=== PATIENT | male | born 1990 | race Native Hawaiian/Other Pacific Islander ===

== ENCOUNTER 2024-07-17 20:22 | Emergency (ER) | payer OTHER, SELFPAY ==
--- NOTE | ~2024-07-17 | XR_ITS ---
EXAMINATION: XR CHEST CLINICAL INFORMATION: cough COMPARISON: None available. TECHNIQUE: 2 views of the chest were obtained. FINDINGS: No focal consolidation, pulmonary edema, or pleural effusion. Normal cardiomediastinal silhouette. XR/XR chest 2V IMPRESSION: No acute cardiopulmonary findings. Electronically signed by: Tank Kulkarni MD 07/17/2024 08:59 PM [facility]
[2024-07-17 20:25] VITALS: BP 121/73; PULSE 79; RESP 18; TEMP 36.8; O2SAT 98; BMI 32.9
--- NOTE | 2024-07-17 20:25 | ED_ITS ---
HPI - General Adult General Chief complaint: General Medical Stated complaint: sick x2 weeks ; dizziness, nausea, vomitting Time Seen by Provider: 07/17/24 21:07 Source: patient and old records reviewed Mode of arrival: ambulatory Limitations: no limitations History of Present Illness ED Provider: HANSEL PELAYO narrative: 33 yo male with PMH of COVID and pneumonia here with c/o URI symptoms cough cold congestion not feeling well for 2 weeks no travel or sick contacts spouse with same illness. He is worried he has pneumonia as he has had it in the past MD complaint: URI Onset (ago): week(s) (2) Location: head and chest Radiation: non-radiation Severity: moderate Pain Consistency: intermittent Relieving factors: none Exacerbating factors: other (coughing) Associated symptoms: cough, headaches, loss of appetite and shortness of breath Treatments prior to arrival: none Related Data Previous Rx's ?Medication ?Instructions ?Recorded albuterol sulfate 90 mcg/actuation 2 puff inhalation QID PRN 07/17/24 aerosol inhaler shortness of breath or wheezing #6.7 grams azithromycin 250 mg tablet 250 mg PO DAILY 4 days #4 tabs 07/17/24 Allergies Allergy/AdvReac Type Severity Reaction Status Date / Time No Known Allergies Allergy Verified 07/17/24 20:29 Review of Systems Review of Systems: Constitutional : No Fever, No Chills, pos Fatigue ENT/Mouth : pos sore throat, pos Rhinorrhea Eyes: No Eye Pain, No Swelling, No Redness Cardiovascular : No Chest Pain, No SOB, No Dyspnea on Exertion Respiratory : pos Cough, pos Sputum Gastrointestinal : No Nausea, No Vomiting, No Diarrhea, No abdominal Pain Genitourinary : No Dysuria, No Urinary Frequency, No Hematuria, Musculoskeletal : No joint pain, No Myalgias, No Joint Swelling Skin : No Skin Lesions, No rash Neuro : No Weakness, No Numbness, No Dizziness, positive Headache Psych : No Anxiety/Panic, No Depression All other systems reviewed and are negative [facility] Past Medical History Medical History (Updated 07/17/24 @ 21:49 by Bernice Nolen DO) Pneumonia Social History Social History (Updated 07/17/24 @ 21:12 by Bernice Nolen DO) Patient Tobacco Use Status: Never used Tobacco Advance Directives: No Advance Directives Information Provided: No Physical Exam ED Vital Signs: Vital Signs - 24 hr 07/17/24 20:25 Temperature 98.2 F Pulse Rate 79 Respiratory Rate 18 Blood Pressure 121/73 Pulse Oximetry 98 Oxygen Delivery Method Room Air BMI result Body Mass Index 32.9 Appearance: Alert. Oriented X3. No acute distress. Eyes: Pupils equal, round and reactive to light. ENT: Pharynx normal. Neck: Normal inspection. Neck supple. CVS: Normal heart rate and rhythm. Pulses normal. Respiratory: No respiratory distress. Breath sounds mild rhonchi noted no wheezing Abdomen: Soft and nontender. Skin: Skin warm and dry. Normal skin color. Normal skin turgor. Extremities: No lower extremity edema. No calf ttp Neuro: Oriented X 3. No motor deficit. No sensory deficit. Course Course Course Narrative: RME, this is a rapid medical exam performed by Jamel Arellano please refer to primary provider for complete H&P- 33 year old male presents for a 2 week history of cough, congestion, headache and subjective fevers. Plan for viral swabs, chest x-ray Medications Administered Discontinued Medications Generic Name Dose Route Start Last Admin Trade Name Freq PRN Reason Stop Dose Admin Albuterol Sulfate 2 puff 07/17/24 21:23 07/17/24 21:32 Albuterol Sulfate 90 Mcg 8 Gm Inhaler INHALE 07/17/24 21:24 2 puff ONCE ONE Administration Dexamethasone Sodium Phosphate 10 mg 07/17/24 21:23 07/17/24 21:32 Dexamethasone Sod Phosphate 10 Mg/Ml Vial PO 07/17/24 21:24 10 mg ONCE ONE Administration Medical Decision Making Medical Decision Making [facility] Narrative: 33 yo male with PMH of reported reactive airway dis and pneumonia in past here with illness x 2 weeks that is URI at this time both he and spouse are here with same complaint - he is not toxic appearing, neuro intact, pharynx normal - suspect bronchitis or pneumonia - start on dexa and albuterol INH. No resp distress Differential Diagnosis Differential Diagnoses: The differential diagnosis associated with the presentation includes bronchitis, pneumonia, URI Admission/Observation Consideration of admission/observation: Escalation of care including admission/observation considered VS stable , tolerating PO stable for DC Lab Data [facility] Lab Attestation statement: I reviewed the patient's lab results. Labs: Lab Results 07/17/24 Range/Units 20:35 Influenza Type A (PCR) NEGATIVE (Negative) Influenza Type B (PCR) NEGATIVE (Negative) RSV RNA Qual (PCR) NEGATIVE (Negative) SARS-CoV-2 RNA (RT-PCR) NEGATIVE (Negative) Independent Interpretation I performed an independent interpretation of an: Plain X-Ray (normal ) Radiology Impression Discussion of test interpretation with radiology: I have reviewed the radiologist's reading. Independent Historian Clinical information obtained from an independent historian. History obtained from or confirmed by: Spouse Prescription Management I considered prescription management with: Antibiotic and Other Discharge Plan Discharge Clinical Impression: Bronchitis Patient Disposition: Home, Self-Care Instructions: Acute Bronchitis (ED) Additional Instructions: return for difficulty breathing, worsening symptoms or any other concerns On azithromycin, call your provider if you develop new ringing in your ears, new problems hearing, dizziness, palpitations, abdominal pain, nausea, or diarrhea. Prescriptions: New azithromycin 250 mg tablet 250 mg PO DAILY 4 Days Qty: 4 0RF Rx Instructions: start on day 2 of therapy albuterol sulfate 90 mcg/actuation HFA aerosol inhaler 2 puff inhalation QID PRN (Reason: shortness of breath or wheezing) Qty: 6.7 0RF Stand Alone Forms: Work/School Release Print Language: Cuban
[2024-07-17 21:26] LABS: Influenza A PCR NEGATIVE (Negative); Influenza B PCR NEGATIVE (Negative); Resp Syncy Virus RNA Qual PCR NEGATIVE (Negative); SARS COV2 PCR INHOUSE NEGATIVE (Negative)
[2024-07-17] MEDS: dexAMETHasone sod phosphate 10 MG/ML VIAL PO (21:32)
[2024-07-17] MEDS: Albuterol Sulfate 90 MCG 8 GM INHALER 2 PUFF INHALE (21:32)
[2024-07-17 22:03] VITALS: BP 120/65; PULSE 78; RESP 16; TEMP 37.3; O2SAT 100
[2024-07-17 22:08] VITALS: BP 120/65; PULSE 78; RESP 16; TEMP 37.3; O2SAT 100
== END 2024-07-17 22:08 | disposition home or self-care (01) ==
PROVIDERS: Physician Assistant; Emergency Provider Emergency Medicine
DX: J40 Bronchitis, not specified as acute or chronic (principal); Z03.818 Encounter for observation for suspected exposure to other biological agents ruled out; R05.9 Cough, unspecified
CPT/HCPCS: 0241U; 71046; 99283; 99284; J1100

== ENCOUNTER 2024-08-01 01:29 | Emergency (ER) | payer OTHER, SELFPAY ==
--- NOTE | 2024-08-01 | ECG_ITS ---
Test Reason : chest pain Blood Pressure : / mmHG Vent. Rate : 080 BPM Atrial Rate : 080 BPM P-R Int : 178 ms QRS Dur : 090 ms QT Int : 364 ms P-R-T Axes : 031 003 008 degrees QTc Int : 419 ms Normal sinus rhythm Minimal voltage criteria for LVH, may be normal variant ( R in aVL ) Borderline ECG No previous ECGs available Referred By: Generic ED Physician Electronically Signed By:Leonidas Carr
--- NOTE | ~2024-08-01 | XR_ITS ---
EXAMINATION: XR CHEST CLINICAL INFORMATION: cough, chest tightness COMPARISON: July 17, 2024 TECHNIQUE: 2 views of the chest were obtained. FINDINGS: No significant abnormality is noted involving the heart, lungs, mediastinum, bony thorax or soft tissues. XR/XR chest 2V IMPRESSION: Unremarkable examination. Electronically signed by: Ricardo Lowe MD 08/01/2024 04:07 AM [facility]
[2024-08-01 01:40] VITALS: BP 125/70; PULSE 84; RESP 20; TEMP 37.1; O2SAT 96; BMI 32.5
--- NOTE | 2024-08-01 02:16 | ED.URI ---
HPI - URI/Sore Throat General Chief Complaint: Upper Respiratory Symptoms Stated Complaint: coughing, chest pain Time Seen by Provider: 08/01/24 02:15 Source: patient Mode of arrival: ambulatory Limitations: no limitations History of Present Illness ED Provider: HPI Narrative: Patient has been congested and coughing for last few days with chest tightness roommate also sick with the same symptoms symptoms started about a month ago since he moved to a new apartment patient does have history of asthma smokes cigarette Related Data Previous Rx's ?Medication ?Instructions ?Recorded albuterol sulfate 90 mcg/actuation 2 puff inhalation QID PRN 07/17/24 aerosol inhaler shortness of breath or wheezing #6.7 grams azithromycin 250 mg tablet 250 mg PO DAILY 4 days #4 tabs 07/17/24 cefuroxime axetil 500 mg tablet 500 mg PO BID 7 days #14 tabs 08/01/24 prednisone 20 mg tablet 40 mg (2 x 20 mg) PO DAILY #10 tabs 08/01/24 Allergies Allergy/AdvReac Type Severity Reaction Status Date / Time No Known Allergies Allergy Verified 08/01/24 01:40 Review of Systems Review of Systems: Yes all other systems are reviewed and are negative PMFSH Past Medical History Medical History Pneumonia Social History Social History Patient Tobacco Use Status: Never used Tobacco Advance Directives: No Advance Directives Information Provided: Yes Do you have a plan to hurt others: No Plan Physical Exam Vital Signs: Vital Signs: Last Vital Signs Temp 98.7 F 08/01/24 01:40 Pulse 84 08/01/24 01:40 Resp 20 08/01/24 01:40 BP 125/70 08/01/24 01:40 Pulse Ox 96 08/01/24 01:40 O2 Del Method Room Air 08/01/24 01:40 BMI result Body Mass Index 32.5 Appearance: Alert. Oriented X3. No acute distress. ENT: Pharynx normal. Oral Mucosa moist Neck: Normal inspection. Neck supple. CVS: Normal heart rate and rhythm. Pulses normal. Respiratory: No respiratory distress. Equal air entry bilateral, no wheezing/rales/rhonchi prolonged expiration Skin: Skin warm and dry. Normal skin color. Normal skin turgor. Extremities: No lower extremity edema. Neuro: Oriented X 3. Medical Decision Making Lab Data MDM Lab Attestation statement: I reviewed the patient's lab results. Labs: Lab Results 08/01/24 Range/Units 01:55 Influenza Type A (PCR) NEGATIVE (Negative) Influenza Type B (PCR) NEGATIVE (Negative) RSV RNA Qual (PCR) NEGATIVE (Negative) SARS-CoV-2 RNA (RT-PCR) NEGATIVE (Negative) Discharge Plan Discharge Clinical Impression: Bronchitis Patient Disposition: Home, Self-Care Instructions: Acute Bronchitis (ED) Additional Instructions: Continue use inhaler Prednisone and antibiotic as prescribed Follow up with your PCP Prescriptions: New prednisone 20 mg tablet 40 mg PO DAILY Qty: 10 0RF cefuroxime axetil 500 mg tablet 500 mg PO BID 7 Days Qty: 14 0RF No Action azithromycin 250 mg tablet 250 mg PO DAILY 4 Days Qty: 4 0RF Rx Instructions: start on day 2 of therapy albuterol sulfate 90 mcg/actuation HFA aerosol inhaler 2 puff inhalation QID PRN (Reason: shortness of breath or wheezing) Qty: 6.7 0RF Print Language: Slovenian
[2024-08-01 02:45] LABS: Influenza A PCR NEGATIVE (Negative); Influenza B PCR NEGATIVE (Negative); Resp Syncy Virus RNA Qual PCR NEGATIVE (Negative); SARS COV2 PCR INHOUSE NEGATIVE (Negative)
[2024-08-01] MEDS: predniSONE 20 MG TABLET 40 MG PO (03:52)
[2024-08-01] MEDS: cefuroxime axetiL 500 MG TABLET PO (03:52)
[2024-08-01 03:57] VITALS: BP 125/70; PULSE 84; RESP 20; TEMP 37.1; O2SAT 96
== END 2024-08-01 03:57 | disposition home or self-care (01) ==
PROVIDERS: Emergency Provider Internal Medicine; PCP Internal Medicine
DX: J40 Bronchitis, not specified as acute or chronic (principal); Z03.818 Encounter for observation for suspected exposure to other biological agents ruled out; R05.9 Cough, unspecified
CPT/HCPCS: 0241U; 71046; 93005; 99283

== ENCOUNTER → 2024-08-01 01:32 | Outpatient (BNV) | payer OTHER, SELFPAY | PROVIDERS: Emergency Provider Internal Medicine; PCP Internal Medicine; Visit Provider Internal Medicine Cardiovascular Disease | DX: R07.9 Chest pain, unspecified (principal); R94.31 Abnormal electrocardiogram [ECG] [EKG] | CPT/HCPCS: 93010 ==

== ENCOUNTER 2024-08-06 23:55 | Emergency (ER) | payer OTHER, SELFPAY ==
[2024-08-07 00:46] VITALS: BP 114/65; PULSE 84; RESP 18; TEMP 36.7; O2SAT 98; BMI 33.6
[2024-08-07 02:46] VITALS: BP 127/61; PULSE 71; RESP 16; TEMP 36.3; O2SAT 98
[2024-08-07 04:06] LABS: Appearance Urine Cloudy; Color Urine Yellow; Glucose Urine UA Negative (Negative); Leukocyte Esterase Urine Negative (Negative); Nitrite Urine Negative (Negative); PH 6.5 (5.0-9.0); Urine Blood Negative (Negative); Urine Ketones Negative (Negative); Urine Protein Negative (Neg-Trace)
[2024-08-07 04:08] LABS: Bacteria Urine None Seen (None Seen); Hyaline Casts Urine 0-2 /LPF (0-2); RBC Urine 0-2 /HPF (0-2); Squamous Epithelial Cell Urine 0-2 /HPF (0-2); WBC Urine 0-5 /HPF (0-5)
--- NOTE | 2024-08-07 04:14 | ED_ITS ---
HPI - Back Pain/Injury General Chief Complaint: Back Pain/Injury Stated Complaint: lower back pain Time Seen by Provider: 08/07/24 02:54 Source: patient Mode of arrival: ambulatory Limitations: no limitations History of Present Illness ED Provider: HPI Narrative: Patient's history of kidney stone noticed pain in the right flank lumbar paraspinal area radiating to the other side for last 2 days got worse on with movements with no drop out no urinary symptoms no hematuria Related Data Previous Rx's ?Medication ?Instructions ?Recorded albuterol sulfate 90 mcg/actuation 2 puff inhalation QID PRN 07/17/24 aerosol inhaler shortness of breath or wheezing #6.7 grams azithromycin 250 mg tablet 250 mg PO DAILY 4 days #4 tabs 07/17/24 cefuroxime axetil 500 mg tablet 500 mg PO BID 7 days #14 tabs 08/01/24 prednisone 20 mg tablet 40 mg (2 x 20 mg) PO DAILY #10 tabs 08/01/24 cyclobenzaprine 10 mg tablet 10 mg PO Q8H #20 tabs 08/07/24 ibuprofen 600 mg tablet 600 mg PO Q6H PRN fever or pain 08/07/24 #30 tabs Allergies Allergy/AdvReac Type Severity Reaction Status Date / Time No Known Allergies Allergy Verified 08/07/24 00:50 Review of Systems Review of Systems: Yes all other systems are reviewed and are negative PMFSH Past Medical History Medical History Pneumonia Social History Social History Patient Tobacco Use Status: Never used Tobacco Advance Directives: No Advance Directives Information Provided: No Physical Exam Vital Signs: Vital Signs: Last Vital Signs Temp 98.2 F 08/07/24 05:56 Pulse 67 08/07/24 05:56 Resp 16 08/07/24 05:56 BP 119/64 08/07/24 05:56 Pulse Ox 97 08/07/24 05:56 O2 Del Method Room Air 08/07/24 05:56 BMI result Body Mass Index 33.6 Appearance: Alert. Oriented X3. No acute distress. ENT: Pharynx normal. Oral Mucosa moist Neck: Normal inspection. Neck supple. CVS: Normal heart rate and rhythm. Pulses normal. Respiratory: No respiratory distress. Equal air entry bilateral, no wheezing/rales/rhonchi Abdomen: Soft and nontender. Bowel sounds are present, no mass palpable, no CVA tenderness back: Diffuse lumbar paraspinal tenderness bilateral more on the right than the left no midline tenderness SLR negative gait is normal Skin: Skin warm and dry. Normal skin color. Normal skin turgor. Extremities: No lower extremity edema. No calf tenderness Neuro: Oriented X 3. No motor deficit. Medications Administered Discontinued Medications Generic Name Dose Route Start Last Admin Trade Name Kerri PRN Reason Stop Dose Admin Cyclobenzaprine HCl 10 mg 08/07/24 04:12 08/07/24 04:25 Cyclobenzaprine Hcl 10 Mg Tablet PO 08/07/24 04:13 10 mg ONCE ONE Administration Ibuprofen 600 mg 08/07/24 04:12 08/07/24 04:26 Ibuprofen 600 Mg Tablet PO 08/07/24 04:13 600 mg ONCE ONE Administration Medical Decision Making Medical Decision Making [facility] Narrative: Patient's atraumatic lower back pain with history of chronic back problems clinically no spinal cord injury or mph per the now urine is negative for blood scribe muscle relaxant pain medicine Differential Diagnosis Kidney stone/UTI/musculoskeletal pain Lab Data [facility] Lab Attestation statement: I reviewed the patient's lab results. Labs: Lab Results 08/07/24 Range/Units 03:58 Urine Color Yellow Urine Appearance Cloudy Urine pH 6.5 (5.0-9.0) Ur Specific [place] 1.020 (1.005-1.025) Urine Protein Negative (Neg-Trace) mg/dL Urine Glucose (UA) Negative (Negative) mg/dL Urine Ketones Negative (Negative) mg/dL Urine Blood Negative (Negative) Urine Nitrite Negative (Negative) Ur Leukocyte Esterase Negative (Negative) Urine RBC 0-2 (0-2) /HPF Urine WBC 0-5 (0-5) /HPF Ur Squamous Epith Cells 0-2 (0-2) /HPF Urine Bacteria None Seen (None Seen) Hyaline Casts 0-2 (0-2) /LPF Discharge Plan Discharge Clinical Impression: Strain of lumbar region, Thoracic back pain Patient Disposition: Home, Self-Care Instructions: Back Pain (ED) Additional Instructions: Take pain medication and muscle relaxant as prescribed Follow with your PCP as needed if not better Prescriptions: New cyclobenzaprine 10 mg tablet 10 mg PO Q8H Qty: 20 0RF ibuprofen 600 mg tablet 600 mg PO Q6H PRN (Reason: fever or pain) Qty: 30 0RF No Action azithromycin 250 mg tablet 250 mg PO DAILY 4 Days Qty: 4 0RF Rx Instructions: start on day 2 of therapy albuterol sulfate 90 mcg/actuation HFA aerosol inhaler 2 puff inhalation QID PRN (Reason: shortness of breath or wheezing) Qty: 6.7 0RF prednisone 20 mg tablet 40 mg PO DAILY Qty: 10 0RF cefuroxime axetil 500 mg tablet 500 mg PO BID 7 Days Qty: 14 0RF Stand Alone Forms: Work/School Release Interventions: ED Discharge Assessment Last Done: 08/07/24 05:56 Discharge Date/Time: 08/07/24 05:58 Print Language: Bermudian
[2024-08-07] MEDS: Cyclobenzaprine HCl 10 MG TABLET PO (04:25)
[2024-08-07] MEDS: Ibuprofen 600 MG TABLET PO (04:26)
[2024-08-07 04:30] VITALS: BP 119/64; PULSE 67; RESP 16; TEMP 36.8; O2SAT 97
[2024-08-07 05:56] VITALS: BP 119/64; PULSE 67; RESP 16; TEMP 36.8; O2SAT 97
== END 2024-08-07 05:58 | disposition home or self-care (01) ==
PROVIDERS: Emergency Provider Internal Medicine; PCP Internal Medicine
DX: S39.012A Strain of muscle, fascia and tendon of lower back, initial encounter (principal); X58.XXXA Exposure to other specified factors, initial encounter; Y93.9 Activity, unspecified; Y92.9 Unspecified place or not applicable; Y99.9 Unspecified external cause status; R10.9 Unspecified abdominal pain; Z87.442 Personal history of urinary calculi
CPT/HCPCS: 81001; 99283

== ENCOUNTER 2024-11-24 00:47 | Emergency (ER) | payer OTHER, SELFPAY ==
[2024-11-24 00:58] VITALS: BP 123/72; PULSE 97; RESP 12; TEMP 36.5; O2SAT 94; BMI 36.2
--- NOTE | 2024-11-24 03:00 | ED.BACK ---
HPI - Back Pain/Injury General Chief Complaint: Back Pain/Injury Stated Complaint: back pain Time Seen by Provider: 11/24/24 02:58 Source: patient Mode of arrival: ambulatory Limitations: no limitations History of Present Illness ED Provider: HPI Narrative: Patient complaining of lower back pain with no radiation yesterday after working in the car bending over the waist patient does have history of back problems with flare-up off and on. No bladder bowel involved Related Data Previous Rx's ?Medication ?Instructions ?Recorded albuterol sulfate 90 mcg/actuation 2 puff inhalation QID PRN 07/17/24 aerosol inhaler shortness of breath or wheezing #6.7 grams azithromycin 250 mg tablet 250 mg PO DAILY 4 days #4 tabs 07/17/24 cefuroxime axetil 500 mg tablet 500 mg PO BID 7 days #14 tabs 08/01/24 prednisone 20 mg tablet 40 mg (2 x 20 mg) PO DAILY #10 tabs 08/01/24 cyclobenzaprine 10 mg tablet 10 mg PO Q8H #20 tabs 08/07/24 ibuprofen 600 mg tablet 600 mg PO Q6H PRN fever or pain 08/07/24 #30 tabs cyclobenzaprine 10 mg tablet 10 mg PO Q8H #20 tabs 11/24/24 ibuprofen 600 mg tablet 600 mg PO Q6H PRN fever or pain 11/24/24 #30 tabs Allergies Allergy/AdvReac Type Severity Reaction Status Date / Time No Known Allergies Allergy Verified 11/24/24 01:01 Review of Systems Review of Systems: Yes all other systems are reviewed and are negative PMFSH Past Medical History Medical History Pneumonia Social History Social History Patient Tobacco Use Status: Never used Tobacco Smoked in Last 30 Days: No Use of substances other than those prescribed or required for medical reasons: No Do you have a plan to hurt others: No Plan Physical Exam Vital Signs: Vital Signs: Last Vital Signs Temp 97.7 F 11/24/24 00:58 Pulse 97 11/24/24 00:58 Resp 12 11/24/24 00:58 BP 123/72 11/24/24 00:58 Pulse Ox 94 11/24/24 00:58 O2 Del Method Room Air 11/24/24 00:58 BMI result Body Mass Index 36.2 Appearance: Alert. Oriented X3. No acute distress. Neck: Normal inspection. Neck supple. CVS: Normal heart rate and rhythm. Pulses normal. Respiratory: No respiratory distress. Equal air entry bilateral, no wheezing/rales/rhonchi Abdomen: Soft and nontender. Bowel sounds are present, no mass palpable, no CVA tenderness Skin: Skin warm and dry. Normal skin color. Normal skin turgor. back: diffuse tenderness lumbar area SLR negative bilaterally Extremities: No lower extremity edema. No calf tenderness Neuro: Oriented X 3. No motor deficit. No sensory deficit.No cerebellar signs , cranial nerves II-XII intact Medical Decision Making Medical Decision Making MDM Narrative: patient with lumbar strain no signs of spinal cord involvement patient ambulatory in steady gait will prescribe ibuprofen and muscle relaxer Discharge Plan Discharge Clinical Impression: Strain of lumbar region Patient Disposition: Home, Self-Care Instructions: Acute Low Back Pain (ED) Additional Instructions: take pain medication and muscle relaxant as advised follow with your PCP if not better Prescriptions: New cyclobenzaprine 10 mg tablet 10 mg PO Q8H Qty: 20 0RF ibuprofen 600 mg tablet 600 mg PO Q6H PRN (Reason: fever or pain) Qty: 30 0RF No Action azithromycin 250 mg tablet 250 mg PO DAILY 4 Days Qty: 4 0RF Rx Instructions: start on day 2 of therapy albuterol sulfate 90 mcg/actuation HFA aerosol inhaler 2 puff inhalation QID PRN (Reason: shortness of breath or wheezing) Qty: 6.7 0RF prednisone 20 mg tablet 40 mg PO DAILY Qty: 10 0RF cefuroxime axetil 500 mg tablet 500 mg PO BID 7 Days Qty: 14 0RF cyclobenzaprine 10 mg tablet 10 mg PO Q8H Qty: 20 0RF ibuprofen 600 mg tablet 600 mg PO Q6H PRN (Reason: fever or pain) Qty: 30 0RF Print Language: Bhutanese
[2024-11-24] MEDS: Cyclobenzaprine HCl 10 MG TABLET PO (03:20)
[2024-11-24] MEDS: Ibuprofen 600 MG TABLET PO (03:20)
[2024-11-24 03:27] VITALS: BP 119/68; PULSE 74; RESP 16; TEMP 36.6; O2SAT 97
== END 2024-11-24 03:29 | disposition home or self-care (01) ==
PROVIDERS: Emergency Provider Internal Medicine
DX: S39.012A Strain of muscle, fascia and tendon of lower back, initial encounter (principal); X50.1XXA Overexertion from prolonged static or awkward postures, initial encounter; Y93.89 Activity, other specified; Y92.9 Unspecified place or not applicable; Y99.9 Unspecified external cause status
CPT/HCPCS: 99283; 99284

== ENCOUNTER 2025-01-14 20:58 | Emergency (ER) | payer OTHER, SELFPAY ==
--- NOTE | ~2025-01-14 | XR_ITS ---
CLINICAL HISTORY: asthma cp 1 view chest x-ray Comparison: CR/SR - XR CHEST 2V - 08/01/24 02:08 EST Findings: Mildly diffuse interstitial opacities with bronchial wall thickening. No significant pleural effusion or pneumothorax. Normal size heart. No acute fracture. IMPRESSION: Possible small airways disease. This document has been electronically signed by: Mark Braden MD on 01/14/2025 21:48:41
[2025-01-14 20:59] VITALS: BP 133/74; PULSE 93; RESP 18; TEMP 36.8; O2SAT 96; BMI 37.4
--- NOTE | 2025-01-14 21:04 | ECG_ITS ---
Test Reason : ASTHMA Blood Pressure : */* mmHG Vent. Rate : 81 BPM Atrial Rate : 81 BPM P-R Int : 178 ms QRS Dur : 88 ms QT Int : 342 ms P-R-T Axes : 29 -4 3 degrees QTcB Int : 397 ms Normal sinus rhythm Minimal voltage criteria for LVH, may be normal variant ( R in aVL ) Septal infarct , age undetermined Abnormal ECG When compared with ECG of 01-Aug-2024 01:32, Septal infarct is now Present Referred By: Generic ED Physician Electronically Signed By: Leonidas Carr
--- NOTE | 2025-01-14 21:29 | ED.ASTHMA ---
HPI - Asthma General Chief Complaint: Asthma Stated Complaint: asthma Time Seen by Provider: 01/14/25 21:24 Source: patient Mode of arrival: ambulatory Limitations: no limitations History of Present Illness ED Provider: Dr. Jenna Simms HPI Narrative: Patient comes to the emergency room complaining of multiple asthma exacerbations. Patient states that it is worse at night. Patient states that sometimes when he is sleeping at night, he feels very short of breath, has to get up cough has a bit of wheezing, uses his inhaler and Helps some. However, patient states that it is becoming more frequent. Patient denies chest pain, complaining of more cough than usual. Denies fever or chills. Patient also ran out of his inhaler. Patient states that this time he has no chest pain or shortness of breath Related Data Previous Rx's ?Medication ?Instructions ?Recorded albuterol sulfate 90 mcg/actuation 2 puff inhalation QID PRN 07/17/24 aerosol inhaler shortness of breath or wheezing #6.7 grams azithromycin 250 mg tablet 250 mg PO DAILY 4 days #4 tabs 07/17/24 cefuroxime axetil 500 mg tablet 500 mg PO BID 7 days #14 tabs 08/01/24 prednisone 20 mg tablet 40 mg (2 x 20 mg) PO DAILY #10 tabs 08/01/24 cyclobenzaprine 10 mg tablet 10 mg PO Q8H #20 tabs 08/07/24 ibuprofen 600 mg tablet 600 mg PO Q6H PRN fever or pain 08/07/24 #30 tabs cyclobenzaprine 10 mg tablet 10 mg PO Q8H #20 tabs 11/24/24 ibuprofen 600 mg tablet 600 mg PO Q6H PRN fever or pain 11/24/24 #30 tabs albuterol sulfate 90 mcg/actuation 2 puff inhalation Q4-6H PRN 01/14/25 aerosol inhaler shortness of breath or wheezing #6.7 grams benzonatate 100 mg capsule 100 mg PO TID PRN cough #15 caps 01/14/25 prednisone 50 mg tablet 50 mg PO DAILY #4 tabs 01/14/25 Allergies Allergy/AdvReac Type Severity Reaction Status Date / Time No Known Allergies Allergy Verified 01/14/25 21:03 Review of Systems Review of Systems: Constitutional : No Weight loss, No Fever, No Chills, No Night Sweats, No Fatigue, No Malaise ENT/Mouth : No Hearing loss, No Ear Pain, No Nasal Congestion, No Sinus Pain, No Hoarseness, No sore throat, No Rhinorrhea, No Swallowing Difficulty Eyes: No Eye Pain, No Swelling, No Redness, No Foreign Body, No Discharge, No Vision Changes Cardiovascular : No Chest Pain, No SOB, No Dyspnea on Exertion, No Orthopnea, No Edema, No Palpitations Respiratory : complaining of cough, wheezing intermittently Gastrointestinal : No Nausea, No Vomiting, No Diarrhea, No Constipation, No abdominal Pain, No Hematochezia, No Melena Genitourinary : no irregular bleeding, No Dysuria, No Urinary Frequency, No Hematuria, No Urinary Incontinence, No Urgency, No Flank Pain, No Urinary Flow Changes, No Hesitancy Musculoskeletal : No joint pain, No Myalgias, No Joint Swelling Skin : No Skin Lesions, No rash Neuro : No Weakness, No Numbness, No Paresthesias, No Loss of Consciousness, No Dizziness, No Headache Psych : No Anxiety/Panic, No Depression, No SI/HI/AH/VH, No Social Issues, Heme/Lymph: No Bruising, No Bleeding,No Lymphadenopathy Endocrine : No Polyuria, No Polydipsia, No Temperature Intolerance [facility] Past Medical History Medical History (Updated 01/14/25 @ 22:58 by Jenna Simms MD) Asthma Pneumonia Social History Social History Patient Tobacco Use Status: Never used Tobacco Advance Directives: No Advance Directives Information Provided: No Do you have a plan to hurt others: No Plan Physical Exam Vital Signs: Vital Signs: Last Vital Signs Temp 98.3 F 01/14/25 20:59 Pulse 93 01/14/25 20:59 Resp 18 01/14/25 20:59 BP 133/74 01/14/25 20:59 Pulse Ox 96 01/14/25 20:59 O2 Del Method Room Air 01/14/25 20:59 BMI result Body Mass Index 37.4 Const: Other: Appearance: Alert. Oriented X3. No acute distress. Eyes: Pupils equal, round and reactive to light. ENT: Pharynx normal. Neck: Normal inspection. Neck supple. No lymph nodes noted. No crepitus CVS: Normal heart rate and rhythm. Pulses normal. Normal S1 and S2 Respiratory: No respiratory distress. Breath sounds normal. No Wheezing. No rales Abdomen: Soft and nontender. No rigidity. No distention. Skin: Skin warm and dry. Normal skin color. Normal skin turgor. Extremities: No lower extremity edema. No Lacerations. No Rash Neuro: Oriented X 3. No motor deficit. No sensory deficit. Moving all extremities. No slurred speech. CN 2 through 12 grossly intact Psych: calm, cooperative, normal affect Course Course Course Narrative: on physical exam, patient has no wheezing at all. At this time, no need for nebulization treatment. Patient will be given a dose of prednisone p.o. Medical Decision Making Medical Decision Making [facility] Narrative: my interpretation of EKG: Normal sinus rhythm, heart rate 81, no ST segment depression or elevation, nonspecific T-wave inversion 93, QTC 397 chest x-ray: Small airway disease, no infiltrates Serology test negative ambulation trial oxygen saturation stayed at 97%. Patient likely has a viral illness which is triggering his asthma. Patient's vitals stable, ready for discharge Differential Diagnosis Differential Diagnoses: The differential diagnosis associated with the presentation includes ( COVID, RSV, influenza, asthma exacerbation) Lab Data [facility] Lab Attestation statement: I reviewed the patient's lab results. Labs: Lab Results 01/14/25 Range/Units 21:31 Influenza Type A (PCR) NEGATIVE (Negative) Influenza Type B (PCR) NEGATIVE (Negative) RSV RNA Qual (PCR) NEGATIVE (Negative) SARS-CoV-2 RNA (RT-PCR) NEGATIVE (Negative) Independent Interpretation I performed an independent interpretation of an: EKG and Plain X-Ray Radiology Impression Discussion of test interpretation with radiology: I have reviewed the radiologist's reading. Radiologist Impression: Mildly diffuse interstitial opacities with bronchial wall thickening. No significant pleural effusion or pneumothorax. Normal size heart. No acute fracture. IMPRESSION: Possible small airways disease. Discharge Plan Discharge Clinical Impression: Acute viral bronchitis, Asthma Patient Disposition: Home, Self-Care Instructions: Asthma (ED), Acute Bronchitis (ED) Additional Instructions: Please follow-up with your primary care physician tomorrow. If you have any worsening or new symptoms, please return to the emergency room or call 911 Prescriptions: New albuterol sulfate 90 mcg/actuation HFA aerosol inhaler 2 puff inhalation Q4-6H PRN (Reason: shortness of breath or wheezing) Qty: 6.7 0RF prednisone 50 mg tablet 50 mg PO DAILY Qty: 4 0RF benzonatate 100 mg capsule 100 mg PO TID PRN (Reason: cough) Qty: 15 0RF No Action azithromycin 250 mg tablet 250 mg PO DAILY 4 Days Qty: 4 0RF Rx Instructions: start on day 2 of therapy albuterol sulfate 90 mcg/actuation HFA aerosol inhaler 2 puff inhalation QID PRN (Reason: shortness of breath or wheezing) Qty: 6.7 0RF prednisone 20 mg tablet 40 mg PO DAILY Qty: 10 0RF cefuroxime axetil 500 mg tablet 500 mg PO BID 7 Days Qty: 14 0RF cyclobenzaprine 10 mg tablet 10 mg PO Q8H Qty: 20 0RF ibuprofen 600 mg tablet 600 mg PO Q6H PRN (Reason: fever or pain) Qty: 30 0RF cyclobenzaprine 10 mg tablet 10 mg PO Q8H Qty: 20 0RF ibuprofen 600 mg tablet 600 mg PO Q6H PRN (Reason: fever or pain) Qty: 30 0RF Print Language: German
[2025-01-14 22:19] LABS: Influenza A PCR NEGATIVE (Negative); Influenza B PCR NEGATIVE (Negative); Resp Syncy Virus RNA Qual PCR NEGATIVE (Negative); SARS COV2 PCR INHOUSE NEGATIVE (Negative)
[2025-01-14 23:15] VITALS: BP 133/74; PULSE 93; RESP 18; TEMP 36.8; O2SAT 96
[2025-01-14] MEDS: predniSONE 10 MG TABLET 50 MG PO (23:16)
== END 2025-01-14 23:15 | disposition home or self-care (01) ==
PROVIDERS: Emergency Provider Emergency Medicine
DX: J20.8 Acute bronchitis due to other specified organisms (principal); J45.909 Unspecified asthma, uncomplicated; R06.02 Shortness of breath; Z03.818 Encounter for observation for suspected exposure to other biological agents ruled out
CPT/HCPCS: 0241U; 71045; 93005; 99283

== ENCOUNTER → 2025-01-14 21:04 | Outpatient (BNV) | payer OTHER, SELFPAY | PROVIDERS: Emergency Provider Emergency Medicine; Visit Provider Radiology Diagnostic Radiology | DX: R07.9 Chest pain, unspecified (principal) | CPT/HCPCS: 71045 ==

== ENCOUNTER → 2025-01-14 21:04 | Outpatient (BNV) | payer OTHER, SELFPAY | PROVIDERS: Emergency Provider Emergency Medicine; Visit Provider Internal Medicine Cardiovascular Disease | DX: R94.31 Abnormal electrocardiogram [ECG] [EKG] (principal); J45.909 Unspecified asthma, uncomplicated | CPT/HCPCS: 93010 ==

== ENCOUNTER 2025-02-18 17:48 | Emergency (ER) | payer OTHER, SELFPAY ==
--- NOTE | ~2025-02-18 | CT_ITS ---
CLINICAL HISTORY: head injury CT cervical spine without contrast Comparison: None provided Findings: Normal vertebral body alignment. No significant degenerative change. No acute fractures or dislocations. Visualized intracranial contents are unremarkable. Soft tissues of the neck are normal. Lung apices are clear. IMPRESSION: No acute findings. This document has been electronically signed by: Jerardo Starks MD on 02/18/2025 20:30:06
--- NOTE | ~2025-02-18 | XR_ITS ---
CLINICAL HISTORY: SOB Chest Radiographs, 2 views Comparison: None available Findings: No cardiomegaly. Normal mediastinal contours. No pneumothorax. No opacity. No pleural effusion. Normal upper abdomen. No acute fracture. Impression: No acute findings. This document has been electronically signed by: Mae Mcgill MD on 02/18/2025 19:00:39
--- NOTE | ~2025-02-18 | CT_ITS ---
CLINICAL HISTORY: head injury CT head without contrast Comparison: None provided Findings: No intra-axial mass, midline shift, hydrocephalus, or acute hemorrhage. No significant atrophy-like change or white matter disease. The visualized paranasal sinuses and mastoid air cells are normal. The orbits are within normal limits. There is no acute fracture. IMPRESSION: 1. No acute intracranial findings. This document has been electronically signed by: Jerardo Starks MD on 02/18/2025 20:11:02
[2025-02-18 18:13] VITALS: BP 122/68; PULSE 68; RESP 16; TEMP 36.7; O2SAT 96; BMI 37.0
--- NOTE | 2025-02-18 18:18 | ED.HEATRA ---
HPI - Head Injury General Chief complaint: Head Injury Stated complaint: shower ceiling fell on his head 02/15/vomiting Time Seen by Provider: 02/18/25 20:29 Source: patient Mode of arrival: ambulatory Limitations: no limitations History of Present Illness ED Provider: HPI Narrative: Patient apparently healthy was taking shower 4 days ago and 1 of the drops feeling fell on him since next day patient has been having diarrhea and vomiting mostly patient has had diarrhea more than the vomiting about 3 to 4 times a day none in last 24 hours feeling much better no significant injuries no other family member sick no fever no chills Related Data Previous Rx's ?Medication ?Instructions ?Recorded albuterol sulfate 90 mcg/actuation 2 puff inhalation QID PRN 07/17/24 aerosol inhaler shortness of breath or wheezing #6.7 grams azithromycin 250 mg tablet 250 mg PO DAILY 4 days #4 tabs 07/17/24 cefuroxime axetil 500 mg tablet 500 mg PO BID 7 days #14 tabs 08/01/24 prednisone 20 mg tablet 40 mg (2 x 20 mg) PO DAILY #10 tabs 08/01/24 cyclobenzaprine 10 mg tablet 10 mg PO Q8H #20 tabs 08/07/24 ibuprofen 600 mg tablet 600 mg PO Q6H PRN fever or pain 08/07/24 #30 tabs cyclobenzaprine 10 mg tablet 10 mg PO Q8H #20 tabs 11/24/24 ibuprofen 600 mg tablet 600 mg PO Q6H PRN fever or pain 11/24/24 #30 tabs albuterol sulfate 90 mcg/actuation 2 puff inhalation Q4-6H PRN 01/14/25 aerosol inhaler shortness of breath or wheezing #6.7 grams benzonatate 100 mg capsule 100 mg PO TID PRN cough #15 caps 01/14/25 prednisone 50 mg tablet 50 mg PO DAILY #4 tabs 01/14/25 Allergies Allergy/AdvReac Type Severity Reaction Status Date / Time No Known Allergies Allergy Verified 02/18/25 18:18 Review of Systems Review of Systems: Yes all other systems are reviewed and are negative PMFSH Past Medical History Medical History Asthma Pneumonia Social History Social History Patient Tobacco Use Status: Never used Tobacco Smoked in Last 30 Days: No Use of substances other than those prescribed or required for medical reasons: No Advance Directives: No Advance Directives Information Provided: No Do you have a plan to hurt others: No Plan Physical Exam Vital Signs: Vital Signs: Last Vital Signs Temp 97.2 F 02/18/25 21:18 Pulse 60 02/18/25 21:18 Resp 15 02/18/25 21:18 BP 125/67 02/18/25 21:18 Pulse Ox 98 02/18/25 21:18 O2 Del Method Room Air 02/18/25 21:18 BMI result Body Mass Index 37.0 Appearance: Alert. Oriented X3. No acute distress. Eyes: no pallor or icterus ENT: Pharynx normal Oral Mucosa moist tympanic membrane intact no erythema, Neck: Normal inspection. Neck supple. No midline tenderness CVS: Normal heart rate and rhythm. Pulses normal. Respiratory: No respiratory distress. Equal air entry bilateral, no wheezing/rales/rhonchi Abd: soft, not tender no mass palpable Skin: Skin warm and dry. Normal skin color. Normal skin turgor. Extremities: No lower extremity edema, no calf tenderness Neuro: Oriented X 3. Course Course Course Narrative: This is an RME: Additional HPI, ROS, PE not included below will be deferred to primary provider. RME assessment and note performed by: Renuka Breaux PA-C This is a [id number] who presents emergency department with concerns of head trauma. Patient states that the ceiling above him collapsed onto his head. He denies losing consciousness however he has had blurry vision intermittently, and nausea and vomiting. Patient also states that he has had some shortness of breath over the last 2 weeks. He is neurologically intact. Plan: CT head and neck, labs, EKG, further ER evaluation needed. Medical Decision Making Medical Decision Making [facility] Narrative: Patient with minor head injury but has a under related diarrhea and vomiting starting next day patient did get CT head and CT cervical spine which was negative no bowel movement or vomiting for last 24 hours discharge patient home on supportive treatment Lab Data [facility] Lab Attestation statement: I reviewed the patient's lab results. 02/18/25 18:44 02/18/25 18:44 Labs: Lab Results 06/26/25 Range/Units 18:44 WBC 6.5 (4.8-10.8) X10*3/uL RBC 4.82 (4.60-5.80) X10*6/uL Hgb 14.2 (14.0-18.0) g/dl Hct 41.5 L (42.0-52.0) % MCV 86.1 (80.0-98.0) fL MCH 29.5 (27.0-33.0) pg MCHC 34.2 (31.0-36.0) g/dl RDW 13.6 (11.0-16.0) % Plt Count 258 (160-400) X10*3/uL MPV 10.1 (9.4-12.4) fL Immature Gran % (Auto) 0.2 (0.0-0.4) % Neut % (Auto) 54.6 (45-73) % Lymph % (Auto) 30.9 (20-40) % [place] % (Auto) 12.3 H (2-11) % Eos % (Auto) 1.5 (0-4) % Baso % (Auto) 0.5 (0-2) % Lymph # (Auto) 2.0 (1.2-4.9) X10*3/uL [place] # (Auto) 0.8 (0.1-1.2) X10*3/uL Eos # (Auto) 0.1 (0.0-0.4) X10*3/uL Baso # (Auto) 0.0 (0.0-0.2) X10*3/uL Abs Immat Gran (auto) 0.01 (0.00-0.03) X10*3/uL Absolute Neuts (auto) 3.5 (2.0-8.3) x10*3/uL Absolute Nucleated RBC 0.000 (0.0-0.012) X10*3/uL Nucleated RBC % (auto) 0.0 (0.0-0.2) /100WBC Sodium 142 (135-145) mmol/L Potassium 3.9 (3.3-5.1) mmol/L Chloride 111 H (96-108) mmol/L Carbon Dioxide 25 (22-29) mmol/L Anion Gap 10 L (12-20) BUN 10 (9-16) mg/dL Creatinine 0.79 (0.5-1.4) mg/dL Estim Creat Clear Calc 162.3 Estimated GFR > 60 Random Glucose 85 (60-115) mg/dL Calcium 9.2 (8.4-10.2) mg/dL Total Bilirubin 0.5 (0.0-1.0) mg/dL AST 30 (5-37) U/L ALT 49 H (0-40) U/L Alkaline Phosphatase 82 (39-117) U/L Total Protein 7.6 (6.5-8.0) g/dL Albumin 4.4 (3.5-5.0) g/dL Independent Interpretation I performed an independent interpretation of an: CT Scan Radiology Impression Discussion of test interpretation with radiology: I have reviewed the radiologist's reading. Radiologist Impression: Negative cervical spine and CT head Discharge Plan Discharge Clinical Impression: Gastroenteritis Patient Disposition: Home, Self-Care Instructions: Gastroenteritis (ED) Additional Instructions: Drink plenty of fluids Your symptoms have improved likely infection from the food/viral Follow with your PCP as needed Prescriptions: No Action azithromycin 250 mg tablet 250 mg PO DAILY 4 Days Qty: 4 0RF Rx Instructions: start on day 2 of therapy albuterol sulfate 90 mcg/actuation HFA aerosol inhaler 2 puff inhalation QID PRN (Reason: shortness of breath or wheezing) Qty: 6.7 0RF prednisone 20 mg tablet 40 mg PO DAILY Qty: 10 0RF cefuroxime axetil 500 mg tablet 500 mg PO BID 7 Days Qty: 14 0RF cyclobenzaprine 10 mg tablet 10 mg PO Q8H Qty: 20 0RF ibuprofen 600 mg tablet 600 mg PO Q6H PRN (Reason: fever or pain) Qty: 30 0RF cyclobenzaprine 10 mg tablet 10 mg PO Q8H Qty: 20 0RF ibuprofen 600 mg tablet 600 mg PO Q6H PRN (Reason: fever or pain) Qty: 30 0RF albuterol sulfate 90 mcg/actuation HFA aerosol inhaler 2 puff inhalation Q4-6H PRN (Reason: shortness of breath or wheezing) Qty: 6.7 0RF prednisone 50 mg tablet 50 mg PO DAILY Qty: 4 0RF benzonatate 100 mg capsule 100 mg PO TID PRN (Reason: cough) Qty: 15 0RF Interventions: ED Discharge Assessment Last Done: 02/18/25 21:18 Discharge Date/Time: 02/18/25 21:20 Print Language: Slovak
--- NOTE | 2025-02-18 18:23 | ECG_ITS ---
Test Reason : DIZZINESS Blood Pressure : */* mmHG Vent. Rate : 72 BPM Atrial Rate : 72 BPM P-R Int : 178 ms QRS Dur : 90 ms QT Int : 388 ms P-R-T Axes : 34 0 -6 degrees QTcB Int : 424 ms Normal sinus rhythm Minimal voltage criteria for LVH, may be normal variant ( R in aVL ) Borderline ECG When compared with ECG of 14-Jan-2025 21:33, Criteria for Septal infarct are no longer Present Referred By: Renuka Breaux Electronically Signed By: ELIZABETH LEE
[2025-02-18 18:46] LABS: MANUAL DIFF FLAG NO
[2025-02-18 19:02] LABS: Alanine Aminotransferase 49 U/L (0-40); Albumin Level 4.4 g/dL (3.5-5.0); Alkaline Phosphatase 82 U/L (39-117); Anion Gap 10 (12-20); Aspartate Amino Transferase 30 U/L (5-37); Bilirubin Total 0.5 mg/dL (0.0-1.0); Blood Urea Nitrogen 10 mg/dL (9-16); Calcium 9.2 mg/dL (8.4-10.2); Carbon Dioxide 25 mmol/L (22-29); Chloride 111 mmol/L (96-108); Creatinine Clr Calc Pharmacy 162.3; Estimated Glomerular Filt Rate > 60; Glucose Random 85 mg/dL (60-115); Potassium 3.9 mmol/L (3.3-5.1); Sodium 142 mmol/L (135-145); Total Protein 7.6 g/dL (6.5-8.0)
[2025-02-18 19:20] LABS: Basophils Percent Auto 0.5 % (0-2); Eosinophils Absolute Auto 0.1 X10*3/uL (0.0-0.4); Eosinophils Percent Auto 1.5 % (0-4); Hematocrit 41.5 % (42.0-52.0); Hemoglobin 14.2 g/dl (14.0-18.0); Imm Gran Abs Auto 0.01 X10*3/uL (0.00-0.03); Imm Gran Pct Auto 0.2 % (0.0-0.4); Lymphocytes Percent Auto 30.9 % (20-40); Mean Corpuscular HGB Conc 34.2 g/dl (31.0-36.0); Mean Corpuscular Hemoglobin 29.5 pg (27.0-33.0); Mean Corpuscular Volume 86.1 fL (80.0-98.0); Mean Platelet Volume 10.1 fL (9.4-12.4); Monocytes Absolute Auto 0.8 X10*3/uL (0.1-1.2); Monocytes Percent Auto 12.3 % (2-11); Neutrophils Absolute Auto 3.5 x10*3/uL (2.0-8.3); Neutrophils Percent Auto 54.6 % (45-73); Platelet Count 258 X10*3/uL (160-400); Red Blood Count 4.82 X10*6/uL (4.60-5.80); Red Cell Distribution Width 13.6 % (11.0-16.0); White Blood Count 6.5 X10*3/uL (4.8-10.8)
[2025-02-18 20:43] VITALS: BP 125/67; PULSE 60; RESP 15; TEMP 36.2; O2SAT 98
[2025-02-18 21:18] VITALS: BP 125/67; PULSE 60; RESP 15; TEMP 36.2; O2SAT 98
== END 2025-02-18 21:20 | disposition home or self-care (01) ==
PROVIDERS: Physician Assistant Medical; Emergency Provider Internal Medicine
DX: K52.9 Noninfective gastroenteritis and colitis, unspecified (principal); R42 Dizziness and giddiness; R94.31 Abnormal electrocardiogram [ECG] [EKG]; R11.10 Vomiting, unspecified; M54.2 Cervicalgia; R51.9 Headache, unspecified; Z79.899 Other long term (current) drug therapy
CPT/HCPCS: 36415; 70450; 71046; 72125; 80053; 85025; 93005; 99284; 99285

== ENCOUNTER → 2025-02-18 18:23 | Outpatient (BNV) | payer OTHER, SELFPAY | PROVIDERS: Visit Provider Radiology Diagnostic Radiology | DX: S09.90XA Unspecified injury of head, initial encounter (principal); R06.02 Shortness of breath | CPT/HCPCS: 70450; 71046; 72125 ==

== ENCOUNTER → 2025-02-18 18:23 | Outpatient (BNV) | payer OTHER, SELFPAY | PROVIDERS: Emergency Provider Internal Medicine; Visit Provider Internal Medicine | DX: R42 Dizziness and giddiness (principal) | CPT/HCPCS: 93010 ==

== ENCOUNTER 2025-03-16 23:19 | Emergency (ER) | payer OTHER, SELFPAY ==
--- NOTE | ~2025-03-16 | XR_ITS ---
CLINICAL HISTORY: twisted, pain 3 view right ankle Comparison: None Findings: No acute fracture demonstrated. Normal aligment of the ankle mortise without dislocation. [id number] ankle effusion. Mild periarticular soft tissue swelling. No radiopaque foreign body. IMPRESSION: 1. Periarticular soft tissue swelling and ankle effusion without acute fracture, suggesting ankle ligament sprain. This document has been electronically signed by: Kai Gordon MD on 03/17/2025 01:40:17
[2025-03-16 23:32] VITALS: BP 123/77; PULSE 92; RESP 18; TEMP 36.9; O2SAT 95; BMI 37.5
[2025-03-17 01:22] VITALS: BP 130/70; PULSE 76; RESP 20; TEMP 36.7; O2SAT 97
--- NOTE | 2025-03-17 01:44 | ED.LOWEXIN ---
HPI - Extremity Injury (Lower) General Chief Complaint: Extremity Injury, Lower Stated Complaint: twisted ankle Time Seen by Provider: 03/17/25 01:25 Source: patient Mode of arrival: ambulatory Limitations: no limitations History of Present Illness ED Provider: Dr. Jenna Simms HPI Narrative: Patient comes to the emergency room complaining of right ankle pain on the medial aspect of the right foot. Patient states that he was in his been pull, and his foot went through a filtitration pipe and sprain his ankle. Related Data Previous Rx's ?Medication ?Instructions ?Recorded albuterol sulfate 90 mcg/actuation 2 puff inhalation QID PRN 07/17/24 aerosol inhaler shortness of breath or wheezing #6.7 grams azithromycin 250 mg tablet 250 mg PO DAILY 4 days #4 tabs 07/17/24 cefuroxime axetil 500 mg tablet 500 mg PO BID 7 days #14 tabs 08/01/24 prednisone 20 mg tablet 40 mg (2 x 20 mg) PO DAILY #10 tabs 08/01/24 cyclobenzaprine 10 mg tablet 10 mg PO Q8H #20 tabs 08/07/24 ibuprofen 600 mg tablet 600 mg PO Q6H PRN fever or pain 08/07/24 #30 tabs cyclobenzaprine 10 mg tablet 10 mg PO Q8H #20 tabs 11/24/24 ibuprofen 600 mg tablet 600 mg PO Q6H PRN fever or pain 11/24/24 #30 tabs albuterol sulfate 90 mcg/actuation 2 puff inhalation Q4-6H PRN 01/14/25 aerosol inhaler shortness of breath or wheezing #6.7 grams benzonatate 100 mg capsule 100 mg PO TID PRN cough #15 caps 01/14/25 prednisone 50 mg tablet 50 mg PO DAILY #4 tabs 01/14/25 Allergies Allergy/AdvReac Type Severity Reaction Status Date / Time No Known Allergies Allergy Verified 03/16/25 23:35 Review of Systems Review of Systems: Constitutional : No Weight loss, No Fever, No Chills, No Night Sweats, No Fatigue, No Malaise ENT/Mouth : No Hearing loss, No Ear Pain, No Nasal Congestion, No Sinus Pain, No Hoarseness, No sore throat, No Rhinorrhea, No Swallowing Difficulty Eyes: No Eye Pain, No Swelling, No Redness, No Foreign Body, No Discharge, No Vision Changes Cardiovascular : No Chest Pain, No SOB, No Dyspnea on Exertion, No Orthopnea, No Edema, No Palpitations Respiratory : No Cough, No Sputum, No Wheezing, No Smoke Exposure, No Dyspnea Gastrointestinal : No Nausea, No Vomiting, No Diarrhea, No Constipation, No abdominal Pain, No Hematochezia, No Melena Genitourinary : no irregular bleeding, No Dysuria, No Urinary Frequency, No Hematuria, No Urinary Incontinence, No Urgency, No Flank Pain, No Urinary Flow Changes, No Hesitancy Musculoskeletal : Complaining of right ankle pain No Myalgias, No Joint Swelling Skin : No Skin Lesions, No rash Neuro : No Weakness, No Numbness, No Paresthesias, No Loss of Consciousness, No Dizziness, No Headache Psych : No Anxiety/Panic, No Depression, No SI/HI/AH/VH, No Social Issues, Heme/Lymph: No Bruising, No Bleeding,No Lymphadenopathy Endocrine : No Polyuria, No Polydipsia, No Temperature Intolerance [facility] Past Medical History Medical History Asthma Pneumonia Social History Social History Patient Tobacco Use Status: Never used Tobacco Advance Directives: No Advance Directives Information Provided: Yes Physical Exam Exam: Exam: Appearance: Alert. Oriented X3. No acute distress. Eyes: Pupils equal, round and reactive to light. ENT: Pharynx normal. Neck: Normal inspection. Neck supple. No lymph nodes noted. No crepitus CVS: Normal heart rate and rhythm. Pulses normal. Normal S1 and S2 Respiratory: No respiratory distress. Breath sounds normal. No Wheezing. No rales Abdomen: Soft and nontender. No rigidity. No distention. Skin: Skin warm and dry. Normal skin color. Normal skin turgor. Extremities: No lower extremity edema. No Lacerations. No Rash. The ankle does not seem to be swollen, patient complaining of pain on the medial aspect of the right ankle. No deformity. Neuro: Oriented X 3. No motor deficit. No sensory deficit. Moving all extremities. No slurred speech. CN 2 through 12 grossly intact Psych: calm, cooperative, normal affect Vital Signs: Vital Signs: Last Vital Signs Temp 98.1 F 03/17/25 01:22 Pulse 76 03/17/25 01:22 Resp 20 03/17/25 01:22 BP 130/70 03/17/25 01:22 Pulse Ox 97 03/17/25 01:22 O2 Del Method Room Air 03/17/25 01:22 BMI result Body Mass Index 37.5 Course Course Course Narrative: Patient reporting a sprain ankle On the right side patient applying ice Ibuprofen given in the ED Medical Decision Making Medical Decision Making MDM Narrative: X-ray does not show any fracture. However, there is a bit of inflammation, likely a sprain patient provided with crutches Differential Diagnosis Differential Diagnoses: The differential diagnosis associated with the presentation includes (Ankle sprain, ankle fracture, contusion) Independent Interpretation I performed an independent interpretation of an: Plain X-Ray Radiology Impression Discussion of test interpretation with radiology: I have reviewed the radiologist's reading. Radiologist Impression: No acute fracture demonstrated. Normal aligment of the ankle mortise without dislocation. [id number] ankle effusion. Mild periarticular soft tissue swelling. No radiopaque foreign body. IMPRESSION: 1. Periarticular soft tissue swelling and ankle effusion without acute fracture, suggesting ankle ligament sprain Discharge Plan Discharge Clinical Impression: Ankle sprain and strain Patient Disposition: Home, Self-Care Instructions: Ankle Sprain (ED), P.R.I.C.E. Treatment (ED), Ice Pack Application (ED), Crutch Instructions (ED) Additional Instructions: Please follow-up with your primary care physician tomorrow. If you have any worsening or new symptoms, please return to the emergency room or call 911 Prescriptions: No Action azithromycin 250 mg tablet 250 mg PO DAILY 4 Days Qty: 4 0RF Rx Instructions: start on day 2 of therapy albuterol sulfate 90 mcg/actuation HFA aerosol inhaler 2 puff inhalation QID PRN (Reason: shortness of breath or wheezing) Qty: 6.7 0RF prednisone 20 mg tablet 40 mg PO DAILY Qty: 10 0RF cefuroxime axetil 500 mg tablet 500 mg PO BID 7 Days Qty: 14 0RF cyclobenzaprine 10 mg tablet 10 mg PO Q8H Qty: 20 0RF ibuprofen 600 mg tablet 600 mg PO Q6H PRN (Reason: fever or pain) Qty: 30 0RF cyclobenzaprine 10 mg tablet 10 mg PO Q8H Qty: 20 0RF ibuprofen 600 mg tablet 600 mg PO Q6H PRN (Reason: fever or pain) Qty: 30 0RF albuterol sulfate 90 mcg/actuation HFA aerosol inhaler 2 puff inhalation Q4-6H PRN (Reason: shortness of breath or wheezing) Qty: 6.7 0RF prednisone 50 mg tablet 50 mg PO DAILY Qty: 4 0RF benzonatate 100 mg capsule 100 mg PO TID PRN (Reason: cough) Qty: 15 0RF Stand Alone Forms: Work/School Release Print Language: Libyan
[2025-03-17 02:11] VITALS: BP 130/70; PULSE 76; RESP 20; TEMP 36.7; O2SAT 97
== END 2025-03-17 02:15 | disposition home or self-care (01) ==
PROVIDERS: Emergency Provider Emergency Medicine
DX: S93.401A Sprain of unspecified ligament of right ankle, initial encounter (principal); X58.XXXA Exposure to other specified factors, initial encounter; Y93.9 Activity, unspecified; Y92.9 Unspecified place or not applicable; Y99.8 Other external cause status
CPT/HCPCS: 73610; 99283; 99284

== ENCOUNTER → 2025-03-17 00:02 | Outpatient (BNV) | payer OTHER, SELFPAY | PROVIDERS: Emergency Provider Emergency Medicine; Visit Provider Radiology Diagnostic Radiology | DX: R22.41 Localized swelling, mass and lump, right lower limb (principal) | CPT/HCPCS: 73610 ==